=== PATIENT | female | born 1955 | race Caucasian/White ===

== ENCOUNTER → 2024-04-14 12:28 | Outpatient (REF) | payer OTHER, SELFPAY | LOC: HWWDC 12:28 | PROVIDERS: ATTENDING PHYSICIAN Internal Medicine | DX: Z12.31 Encounter for screening mammogram for malignant neoplasm of breast (principal) | CPT/HCPCS: 77063; 77067 ==

== ENCOUNTER 2024-06-21 05:57 | Outpatient (RCR) | payer OTHER, SELFPAY | END 2024-06-21 23:59 | disposition home or self-care (01) | LOC: RPT 05:57 | PROVIDERS: ATTENDING PHYSICIAN Obstetrics & Gynecology; FAMILY PHYSICIAN Internal Medicine | DX: N39.41 Urge incontinence (principal); R35.1 Nocturia; N32.81 Overactive bladder; R27.8 Other lack of coordination; M62.81 Muscle weakness (generalized); Z73.6 Limitation of activities due to disability | CPT/HCPCS: 97014; 97140; 97163; 97530 ==

== ENCOUNTER 2024-07-19 06:17 | Outpatient (RCR) | payer OTHER, SELFPAY | END 2024-07-19 23:59 | disposition home or self-care (01) | LOC: RPT 06:17 | PROVIDERS: ATTENDING PHYSICIAN Obstetrics & Gynecology; FAMILY PHYSICIAN Internal Medicine | DX: N39.41 Urge incontinence (principal); R35.1 Nocturia; N32.81 Overactive bladder; R27.8 Other lack of coordination; M62.81 Muscle weakness (generalized); Z73.6 Limitation of activities due to disability | CPT/HCPCS: 97014; 97112; 97140; 97530 ==

== ENCOUNTER 2024-08-23 06:20 | Outpatient (RCR) | payer OTHER, SELFPAY | END 2024-08-23 23:59 | disposition home or self-care (01) | LOC: RPT 06:20 | PROVIDERS: ATTENDING PHYSICIAN Obstetrics & Gynecology; FAMILY PHYSICIAN Internal Medicine | DX: N39.41 Urge incontinence (principal); R35.1 Nocturia; N32.81 Overactive bladder; R27.8 Other lack of coordination; M62.81 Muscle weakness (generalized); Z73.6 Limitation of activities due to disability | CPT/HCPCS: 97014; 97112; 97530 ==

== ENCOUNTER 2024-09-20 06:35 | Outpatient (RCR) | payer OTHER, SELFPAY | END 2024-09-20 23:59 | disposition home or self-care (01) | LOC: RPT 06:35 | PROVIDERS: ATTENDING PHYSICIAN Obstetrics & Gynecology; FAMILY PHYSICIAN Internal Medicine | DX: N39.41 Urge incontinence (principal); R35.1 Nocturia; N32.81 Overactive bladder; R27.8 Other lack of coordination; M62.81 Muscle weakness (generalized); Z73.6 Limitation of activities due to disability | CPT/HCPCS: 97014; 97112; 97530 ==

== ENCOUNTER 2024-10-18 06:33 | Outpatient (RCR) | payer OTHER, SELFPAY | END 2024-10-18 23:59 | disposition home or self-care (01) | LOC: RPT 06:33 | PROVIDERS: ATTENDING PHYSICIAN Obstetrics & Gynecology; FAMILY PHYSICIAN Internal Medicine | DX: N39.41 Urge incontinence (principal); R35.1 Nocturia; N32.81 Overactive bladder; R27.8 Other lack of coordination; M62.81 Muscle weakness (generalized); Z73.6 Limitation of activities due to disability | CPT/HCPCS: 97014; 97110; 97112; 97530 ==

== ENCOUNTER 2024-11-17 06:21 | Outpatient (RCR) | payer OTHER, SELFPAY | END 2024-11-17 23:59 | disposition home or self-care (01) | LOC: RPT 06:21 | PROVIDERS: ATTENDING PHYSICIAN Obstetrics & Gynecology; FAMILY PHYSICIAN Internal Medicine | DX: N39.41 Urge incontinence (principal); R35.1 Nocturia; N32.81 Overactive bladder; R27.8 Other lack of coordination; M62.81 Muscle weakness (generalized); Z73.6 Limitation of activities due to disability | CPT/HCPCS: 97014; 97110; 97112; 97530 ==

== ENCOUNTER 2024-12-01 06:22 | Outpatient (RCR) | payer OTHER, SELFPAY | END 2024-12-01 23:59 | disposition home or self-care (01) | LOC: RPT 06:22 | PROVIDERS: ATTENDING PHYSICIAN Obstetrics & Gynecology; FAMILY PHYSICIAN Internal Medicine | DX: N39.41 Urge incontinence (principal); R35.1 Nocturia; N32.81 Overactive bladder; R27.8 Other lack of coordination; M62.81 Muscle weakness (generalized); Z73.6 Limitation of activities due to disability | CPT/HCPCS: 97014; 97110; 97112 ==

== ENCOUNTER → 2025-01-24 08:33 | Outpatient (REF) | payer OTHER, SELFPAY | LOC: PET 08:33 | PROVIDERS: ATTENDING PHYSICIAN Internal Medicine Cardiovascular Disease | DX: R06.09 Other forms of dyspnea (principal) | CPT/HCPCS: 78431; A9555; J2785 ==

== ENCOUNTER → 2025-01-27 09:01 | Outpatient (REF) | payer OTHER, SELFPAY | LOC: HWRCS 09:01 | PROVIDERS: ATTENDING PHYSICIAN Internal Medicine Cardiovascular Disease; FAMILY PHYSICIAN Internal Medicine | DX: R06.09 Other forms of dyspnea (principal) | CPT/HCPCS: 93306 ==

== ENCOUNTER → 2025-02-07 13:09 | Outpatient (REF) | payer OTHER, SELFPAY | LOC: DHSLP 13:09 | PROVIDERS: ATTENDING PHYSICIAN Internal Medicine Critical Care Medicine; FAMILY PHYSICIAN Internal Medicine | DX: G47.33 Obstructive sleep apnea (adult) (pediatric) (principal) | CPT/HCPCS: 95800 ==

== ENCOUNTER → 2025-03-23 07:25 | Outpatient (REF) | payer OTHER, SELFPAY | LOC: HWRAD 07:25 | PROVIDERS: ATTENDING PHYSICIAN Internal Medicine | DX: M85.89 Other specified disorders of bone density and structure, multiple sites (principal) | CPT/HCPCS: 77080 ==

== ENCOUNTER → 2025-04-25 14:40 | Outpatient (REF) | payer OTHER, SELFPAY | LOC: HWWDC 14:40 | PROVIDERS: ATTENDING PHYSICIAN Internal Medicine | DX: Z12.31 Encounter for screening mammogram for malignant neoplasm of breast (principal) | CPT/HCPCS: 77063; 77067 ==